=== PATIENT | male | born 1955 | race Caucasian/White ===

== ENCOUNTER 2017-08-06 17:30 | Emergency (ER) | payer BC ==
[~2017-08-06] VITALS: Ht 185.4 cm; Wt 141.4 kg
[~2017-08-06 17:30] MED LIST: BACTRIM DS1 TAB PO; CARVEDILOL3.125 MG PO; GABAPENTIN100 MG PO; INVOKANA300 MG PO; LANTUS100 UNIT/M SC; LIPITOR40 M1 PO; LISINOPRIL5 MG PO; METFORMIN500 MG PO; NOVOLOG100 IU/1 M SC; TRAMADOL HCL50 MG PO; XARELTO20 MG PO
[2017-08-06] MEDS ORDERED: ASPIRIN 81 LOW81 MG PO (17:41)
[2017-08-06 19:49] LABS: HEMATOCRIT 38.3 % (39.0-50.0); HEMOGLOBIN 12.2 g/dl (14.0-18.0); IMMATURE GRANULOCYTES 0.3 % (0.0-1.0); MEAN CELL VOLUME 83.1 fL CALC (80.0-100.0); MEAN CORPUSCULAR HGB 26.5 pG CALC (26.0-32.0); MEAN CORPUSCULAR HGB CONC 31.9 g/L CALC (32.0-36.0); NEUT# 9.47 thou/uL (1.82-7.42); RED BLOOD COUNT 4.61 mill/uL (4.70-6.10); RED CELL DISTRI WIDTH 16.2 % (11.5-15.5)
[2017-08-06 20:00] LABS: INFLUENZA A NONE DETECTED (NONE DETECT); INFLUENZA B NONE DETECTED (NONE DETECT)
[2017-08-06 20:47] LABS: ALBUMIN 3.6 g/dL (3.2-5.0); ALKALINE PHOSPHATASE 120 u/l (38-126); ANION GAP 16 (6-22 (CALC)); BILIRUBIN, TOTAL 0.9 mg/dL (0.0-1.4); BUN 12 mg/dL (8-23); BUN/CREATININE RATIO 19 (12-20 (CALC)); CALCIUM 8.9 mg/dL (8.4-10.2); CARBON DIOXIDE 24 mmol/l (22-30); CHLORIDE 101 mmol/l (95-108); CREATININE 0.6 mg/dL (0.7-1.3); GFR > 60 ML/MIN (>=60 (CALC)); GFR FOR AFR.AMER. > 60 ML/MIN (>=60 (CALC)); GLUCOSE 197 mg/dL (82-115); POTASSIUM 4.2 mmol/l (3.5-5.1); SGOT/AST 22 u/l (19-48); SGPT/ALT 34 u/l (11-66); SODIUM 137 mmol/l (137-146); TOTAL PROTEIN 6.4 g/dL (6.3-8.2)
[2017-08-06] MEDS ORDERED: TESSALON PER100 MG PO (23:18)
[2017-08-06] MEDS ORDERED: PROVENTIL HFA IN (23:18)
[2017-08-06] MEDS ORDERED: ZITHROMAX250 MG PO (23:18)
[2017-08-06 23:55] VITALS: BP 124/65
== END 2017-08-06 23:55 | disposition home or self-care (01) | DRG 203 ==
LOC: ED 17:30
PROVIDERS: Emergency Medicine
DX: J40 Bronchitis, not specified as acute or chronic (principal); E11.40 Type 2 diabetes mellitus with diabetic neuropathy, unspecified; E78.5 Hyperlipidemia, unspecified; I10 Essential (primary) hypertension; I25.10 Atherosclerotic heart disease of native coronary artery without angina pectoris; I25.2 Old myocardial infarction
CPT/HCPCS: Q9967

== ENCOUNTER 2017-12-11 21:17 | Emergency (ER) | payer BC ==
[~2017-12-11] VITALS: Ht 185.4 cm; Wt 134.0 kg
[~2017-12-11 21:17] MED LIST changes: +ASPIRIN 81 LOW81 MG PO; +PROVENTIL HFA IN; +TESSALON PER100 MG PO; +ZITHROMAX250 MG PO
[2017-12-11 22:30] LABS: URINE BILIRUBIN - DIPSTICK NEGATIVE (NEGATIVE); URINE BLOOD DIPSTICK NEGATIVE (NEGATIVE); URINE COLOR YELLOW; URINE GLUCOSE - DIPSTICK >=1000 mg/dL (NEGATIVE); URINE KETONE NEGATIVE (NEGATIVE); URINE LEUK ESTERASE NEGATIVE (NEGATIVE); URINE NITRITE - DIPSTICK NEGATIVE (Negative); URINE PROTEIN - DIPSTICK NEGATIVE (NEG-TRACE); URINE SPECIFIC GRAVITY 1.015; URINE UROBILINOGEN - DIPSTICK 0.2 E.U./dL (0.2)
[2017-12-11 22:32] LABS: URINE CLARITY CLEAR
[2017-12-12] MEDS ORDERED: FLEXERIL PO (00:30)
[2017-12-12] MEDS ORDERED: LORTAB 1010 MG PO (00:30)
[2017-12-12 00:45] VITALS: BP 155/90
== END 2017-12-12 00:45 | disposition home or self-care (01) | DRG 605 ==
LOC: ED 21:17
PROVIDERS: Emergency Medicine
DX: S20.229A Contusion of unspecified back wall of thorax, initial encounter (principal); E11.9 Type 2 diabetes mellitus without complications; I10 Essential (primary) hypertension; I25.2 Old myocardial infarction; M47.816 Spondylosis without myelopathy or radiculopathy, lumbar region; W11.XXXA Fall on and from ladder, initial encounter; Y92.512 Supermarket, store or market as the place of occurrence of the external cause; Y99.9 Unspecified external cause status

== ENCOUNTER 2018-04-25 18:20 | Emergency (ER) | payer BC ==
[~2018-04-25] VITALS: Ht 185.4 cm; Wt 137.0 kg
[~2018-04-25 18:20] MED LIST changes: +FLEXERIL PO; +LORTAB 1010 MG PO
[2018-04-25 18:51] LABS: IMMATURE GRANULOCYTES 0.7 % (0.0-5.0); MEAN CELL VOLUME 83.2 fL CALC (80.0-100.0); MEAN CORPUSCULAR HGB 26.6 pG CALC (26.0-32.0); NEUT# 9.15 thou/uL (1.82-7.42); RED BLOOD COUNT 5.53 mill/uL (4.70-6.10); RED CELL DISTRI WIDTH 15.4 % (11.5-15.5)
[2018-04-25 18:52] LABS: HEMOGLOBIN 14.7 g/dl (14.0-18.0)
[2018-04-25 18:53] LABS: URINE BILIRUBIN - DIPSTICK NEGATIVE (NEGATIVE); URINE BLOOD DIPSTICK NEGATIVE (NEGATIVE); URINE COLOR YELLOW; URINE GLUCOSE - DIPSTICK >=1000 mg/dL (NEGATIVE); URINE KETONE NEGATIVE (NEGATIVE); URINE LEUK ESTERASE NEGATIVE (NEGATIVE); URINE NITRITE - DIPSTICK NEGATIVE (Negative); URINE PROTEIN - DIPSTICK 30 mg/dL (NEG-TRACE); URINE UROBILINOGEN - DIPSTICK 0.2 E.U./dL (0.2)
[2018-04-25 18:56] LABS: COCAINE NEGATIVE (NEGATIVE); METHADONE NEGATIVE (NEGATIVE); TETRAHYDROCANNABIONOL NEGATIVE (NEGATIVE)
[2018-04-25 18:57] LABS: BARBITURATES NEGATIVE (NEGATIVE); OXCYCODONE NEGATIVE (NEGATIVE); TRICYLIC ANTIDEPRESSANTS NEGATIVE (NEGATIVE)
[2018-04-25 19:02] LABS: URINE CLARITY CLEAR
[2018-04-25 19:07] LABS: ALKALINE PHOSPHATASE 127 u/l (38-126); BILIRUBIN, TOTAL 1.2 mg/dL (0.0-1.4); BUN 31 mg/dL (8-23); BUN/CREATININE RATIO 33 (12-20 (CALC)); CARBON DIOXIDE 26 mmol/l (22-30); CHLORIDE 99 mmol/l (95-108); CREATININE 0.9 mg/dL (0.7-1.3); ETHYL ALCOHOL 0 mg/dl (0-30); GFR > 60 ML/MIN (>=60 (CALC)); GFR FOR AFR.AMER. > 60 ML/MIN (>=60 (CALC)); SGPT/ALT 54 u/l (11-66); SODIUM 139 mmol/l (137-146)
[2018-04-25 19:07] LABS: URINE RBC 0-2 RBC/hpf (0-5)
[2018-04-25 19:09] LABS: ALBUMIN 4.8 g/dL (3.2-5.0); ANION GAP 19 (6-22 (CALC)); POTASSIUM 5.3 mmol/l (3.5-5.1); SGOT/AST 49 u/l (19-48); TOTAL PROTEIN 9.7 g/dL (6.3-8.2)
[2018-04-25 20:30] VITALS: BP 132/74
[2018-04-25 20:57] LABS: MYOGLOBIN 53 ng/mL (0 - 121)
== END 2018-04-25 20:40 | disposition left against medical advice (07) | DRG 948 ==
LOC: ED 18:20
PROVIDERS: Emergency Medicine
DX: R53.1 Weakness (principal); E11.65 Type 2 diabetes mellitus with hyperglycemia; I10 Essential (primary) hypertension; I25.2 Old myocardial infarction; Z91.19 Patient's noncompliance with other medical treatment and regimen

== ENCOUNTER 2018-07-25 21:34 | Emergency (ER) | payer BC ==
[~2018-07-25] VITALS: Ht 185.4 cm; Wt 136.0 kg
[2018-07-25] MEDS ORDERED: LORTAB 1010 MG PO (23:19)
[2018-07-25] MEDS ORDERED: BACTRIM DS1 TAB PO (23:19)
[2018-07-25 23:45] VITALS: BP 152/79
== END 2018-07-25 23:42 | disposition home or self-care (01) | DRG 556 ==
LOC: ED 21:34
DX: M79.672 Pain in left foot (principal); E11.610 Type 2 diabetes mellitus with diabetic neuropathic arthropathy; I10 Essential (primary) hypertension; I25.2 Old myocardial infarction

== ENCOUNTER → 2018-10-13 | Outpatient (REF) ==
[~2018-10-13] MED LIST changes: +CLEOCIN300 MG PO
== END | disposition home or self-care (01) | DRG 639 ==
LOC: LAB 08:00
PROVIDERS: ATTEND Physician Assistant
DX: E11.65 Type 2 diabetes mellitus with hyperglycemia (principal); E78.00 Pure hypercholesterolemia, unspecified; I10 Essential (primary) hypertension; E66.01 Morbid (severe) obesity due to excess calories

== ENCOUNTER 2018-11-03 09:19 | Emergency (ER) | payer BC ==
[~2018-11-03] VITALS: Ht 185.4 cm; Wt 136.4 kg
[~2018-11-03 09:19] MED LIST changes: -CLEOCIN300 MG PO
[2018-11-03 10:37] LABS: IMMATURE GRANULOCYTES 0.4 % (0.0-5.0); MEAN CORPUSCULAR HGB CONC 30.8 g/L CALC (32.0-36.0); NEUT# 6.75 thou/uL (1.82-7.42); RED BLOOD COUNT 4.8 mill/uL (4.70-6.10); RED CELL DISTRI WIDTH 16.5 % (11.5-15.5)
[2018-11-03 11:00] LABS: ALBUMIN 3.5 g/dL (3.2-5.0); ALKALINE PHOSPHATASE 108 u/l (38-126); ANION GAP 13 (6-22 (CALC)); BILIRUBIN, TOTAL 0.9 mg/dL (0.0-1.4); BUN 31 mg/dL (8-23); BUN/CREATININE RATIO 49 (12-20 (CALC)); CARBON DIOXIDE 26 mmol/l (22-30); CHLORIDE 101 mmol/l (95-108); CREATININE 0.6 mg/dL (0.7-1.3); GFR > 60 ML/MIN (>=60 (CALC)); GFR FOR AFR.AMER. > 60 ML/MIN (>=60 (CALC)); POTASSIUM 4.6 mmol/l (3.5-5.1); SGOT/AST 27 u/l (19-48); SODIUM 136 mmol/l (137-146); TOTAL PROTEIN 6.8 g/dL (6.3-8.2)
[2018-11-03 11:06] LABS: HEMATOCRIT 38.9 % (39.0-50.0)
[2018-11-03] MEDS ORDERED: CLEOCIN300 MG PO (11:21)
[2018-11-03 12:53] VITALS: BP 166/85
== END 2018-11-03 13:13 | disposition home or self-care (01) | DRG 603 ==
LOC: ED 09:19
PROVIDERS: Emergency Medicine
DX: L03.116 Cellulitis of left lower limb (principal); R22.42 Localized swelling, mass and lump, left lower limb

== ENCOUNTER → 2018-11-03 | Outpatient (REF) | END | disposition home or self-care (01) | DRG 594 | LOC: LAB 12:58 | PROVIDERS: ATTEND Surgery | DX: L97.322 Non-pressure chronic ulcer of left ankle with fat layer exposed (principal); E11.40 Type 2 diabetes mellitus with diabetic neuropathy, unspecified ==

== ENCOUNTER 2019-07-29 10:33 | Observation (INO) | payer MEDICARE ==
[~2019-07-29] VITALS: Ht 185.4 cm; Wt 139.0 kg
[~2019-07-29 10:33] MED LIST changes: +CLEOCIN300 MG PO; +NORCO1 TA2 PO
[2019-07-29 11:25] LABS: HEMATOCRIT 34.9 % (39.0-50.0); HEMOGLOBIN 10.7 g/dl (14.0-18.0); IMMATURE GRANULOCYTES 0.5 % (0.0-5.0); MEAN CORPUSCULAR HGB 23.1 pG CALC (26.0-32.0); MEAN CORPUSCULAR HGB CONC 30.7 g/L CALC (32.0-36.0); NEUT# 12.4 thou/uL (1.82-7.42); RED BLOOD COUNT 4.64 mill/uL (4.70-6.10); RED CELL DISTRI WIDTH 18.6 % (11.5-15.5)
[2019-07-29 11:29] LABS: MEAN CELL VOLUME 75.2 fL CALC (80.0-100.0)
[2019-07-29 11:46] LABS: URINE BILIRUBIN - DIPSTICK NEGATIVE (NEGATIVE); URINE BLOOD DIPSTICK SMALL (NEGATIVE); URINE COLOR YELLOW; URINE GLUCOSE - DIPSTICK >=1000 mg/dL (NEGATIVE); URINE KETONE NEGATIVE (NEGATIVE); URINE LEUK ESTERASE NEGATIVE (NEGATIVE); URINE NITRITE - DIPSTICK NEGATIVE (Negative); URINE PH 7.5 (4.5-8.0); URINE PROTEIN - DIPSTICK 100 mg/dL (NEG-TRACE); URINE UROBILINOGEN - DIPSTICK 0.2 E.U./dL (0.2)
[2019-07-29 11:48] LABS: BARBITURATES NEGATIVE (NEGATIVE); COCAINE NEGATIVE (NEGATIVE); METHADONE NEGATIVE (NEGATIVE); OXCYCODONE NEGATIVE (NEGATIVE); TETRAHYDROCANNABIONOL NEGATIVE (NEGATIVE); TRICYLIC ANTIDEPRESSANTS NEGATIVE (NEGATIVE); URINE SQUAMOUS EPITHELIAL CELL FEW EPI/hpf (0-FEW)
[2019-07-29 11:54] LABS: MYOGLOBIN 33 ng/mL (0 - 121)
[2019-07-29 13:02] LABS: ALBUMIN 3.7 g/dL (3.2-5.0); ALKALINE PHOSPHATASE 130 u/l (38-126); ANION GAP 14 (6-22 (CALC)); BUN 16 mg/dL (8-23); BUN/CREATININE RATIO 28 (12-20 (CALC)); CARBON DIOXIDE 26 mmol/l (22-30); CHLORIDE 99 mmol/l (95-108); CREATININE 0.6 mg/dL (0.7-1.3); GFR > 60 ML/MIN (>=60 (CALC)); GFR FOR AFR.AMER. > 60 ML/MIN (>=60 (CALC)); SGOT/AST 21 u/l (19-48); SODIUM 135 mmol/l (137-146)
[2019-07-29 13:03] LABS: BILIRUBIN, TOTAL 1.3 mg/dL (0.0-1.4)
[2019-07-29 17:39] VITALS: BP 157/87
[2019-07-29 19:06] VITALS: BP 188/91
[2019-07-29 22:04] VITALS: BP 168/73
[2019-07-29 23:48] VITALS: BP 155/80
[2019-07-30 04:27] VITALS: BP 149/82
[2019-07-30 04:44] LABS: HEMATOCRIT 31.4 % (39.0-50.0); HEMOGLOBIN 9.6 g/dl (14.0-18.0); IMMATURE GRANULOCYTES 0.4 % (0.0-5.0); MEAN CELL VOLUME 75.3 fL CALC (80.0-100.0); MEAN CORPUSCULAR HGB CONC 30.6 g/L CALC (32.0-36.0); NEUT# 6.39 thou/uL (1.82-7.42); RED BLOOD COUNT 4.17 mill/uL (4.70-6.10); RED CELL DISTRI WIDTH 18.8 % (11.5-15.5)
[2019-07-30 05:03] LABS: ALKALINE PHOSPHATASE 98 u/l (38-126); ANION GAP 11 (6-22 (CALC)); BILIRUBIN, TOTAL 0.8 mg/dL (0.0-1.4); BUN 19 mg/dL (8-23); BUN/CREATININE RATIO 30 (12-20 (CALC)); CALCULATED LDLCHOLESTEROL 59 mg/dL (62-129 (CALC)); CARBON DIOXIDE 29 mmol/l (22-30); CHLORIDE 100 mmol/l (95-108); CHOLESTEROL HDL RATIO 3.7 (<4.4 (CALC)); CREATININE 0.6 mg/dL (0.7-1.3); GFR > 60 ML/MIN (>=60 (CALC)); GFR FOR AFR.AMER. > 60 ML/MIN (>=60 (CALC)); HDL CHOLESTEROL 31 mg/dL (>=40); POTASSIUM 3.9 mmol/l (3.5-5.1); SGOT/AST 17 u/l (19-48); SODIUM 136 mmol/l (137-146); TOTAL CHOLESTEROL 114 mg/dl (0-199); TOTAL PROTEIN 6.4 g/dL (6.3-8.2); TOTAL TRIGLYCERIDES 120 mg/dl (30-149); VLDL CHOLESTROL 24 mg/dl (4-45 (CALC))
[2019-07-30 05:07] LABS: ALBUMIN 2.9 g/dL (3.2-5.0)
[2019-07-30 07:40] VITALS: BP 186/101
[2019-07-30 09:31] VITALS: BP 186/101
[2019-07-30] MEDS ORDERED: LISINOP/HCTZ1 TA1 PO (10:04)
[2019-07-30] MEDS ORDERED: LOPRESSOR25 M1 PO (10:04)
[2019-07-30] MEDS ORDERED: GABAPENTIN300 M2 PO (10:05)
[2019-07-30] MEDS ORDERED: ELIQUIS5 MG PO (10:05)
[2019-07-30] MEDS ORDERED: TRESIBA FL200 UNIT/M SC (10:07)
[2019-07-30] MEDS ORDERED: DOXYCYC MONO100 M2 PO (10:08)
[2019-07-30] MEDS ORDERED: LASIX 40 MG TAB40 MG PO (10:09)
== END 2019-07-30 11:07 | disposition home or self-care (01) ==
LOC: ED 10:33 → ED-I 14:20 → ED 14:32 → MS2 14:33
PROVIDERS: Emergency Medicine; ADMIT Internal Medicine; ATTEND Internal Medicine
DX: I48.91 Unspecified atrial fibrillation (principal); I11.0 Hypertensive heart disease with heart failure; I50.9 Heart failure, unspecified; E11.621 Type 2 diabetes mellitus with foot ulcer; L97.529 Non-pressure chronic ulcer of other part of left foot with unspecified severity; E11.622 Type 2 diabetes mellitus with other skin ulcer; L97.329 Non-pressure chronic ulcer of left ankle with unspecified severity; L97.919 Non-pressure chronic ulcer of unspecified part of right lower leg with unspecified severity; E11.65 Type 2 diabetes mellitus with hyperglycemia; E11.610 Type 2 diabetes mellitus with diabetic neuropathic arthropathy; E78.5 Hyperlipidemia, unspecified; I25.10 Atherosclerotic heart disease of native coronary artery without angina pectoris; R60.0 Localized edema; I25.2 Old myocardial infarction; E66.01 Morbid (severe) obesity due to excess calories; Z79.4 Long term (current) use of insulin; Z79.01 Long term (current) use of anticoagulants; Z87.891 Personal history of nicotine dependence; Z68.37 Body mass index [BMI] 37.0-37.9, adult; L97.323 Non-pressure chronic ulcer of left ankle with necrosis of muscle; M14.672 Charcot's joint, left ankle and foot; R60.9 Edema, unspecified; L60.2 Onychogryphosis; S90.412D Abrasion, left great toe, subsequent encounter; S90.415D Abrasion, left lesser toe(s), subsequent encounter; L97.212 Non-pressure chronic ulcer of right calf with fat layer exposed
CPT/HCPCS: G0378

== ENCOUNTER 2021-01-19 14:44 | Observation (INO) | payer MEDICARE ==
[~2021-01-19] VITALS: Ht 182.9 cm; Wt 132.0 kg
[~2021-01-19 14:44] MED LIST changes: +DOXYCYC MONO100 M2 PO; +ELIQUIS5 MG PO; +GABAPENTIN300 M2 PO; +HYDROCODONE/ACE1 TAB PO; +LASIX 40 MG TAB40 MG PO; +LISINOP/HCTZ1 TA1 PO; +LOPRESSOR25 M1 PO; +LYRICA150 MG PO; +LYRICA225 MG PO; +MEDDOSEPAK PO; +NEURONTIN400 MG PO; +NEURONTIN600 MG PO; +NORCO1 TA1 PO; +TRESIBA FL200 UNIT/M SC
--- NOTE | 2021-01-19 14:50 | NUR ---
PT WHEELED TO ROOM. PT INSTRUCTED ON PLAN OF CARE. UNABLE TO MOVE PATIENT.
--- NOTE | 2021-01-19 15:26 | NUR ---
EMS HERE FOR ASSIST TO BED.
[2021-01-19 15:56] LABS: BASO% 1 % (0-3); EOS% 2 % (0-8); HEMOGLOBIN 11.4 g/dl (14.0-18.0); IMMATURE GRANULOCYTES 0.6 % (0.0-5.0); LYMPH% 22 % (15-41); MEAN CELL VOLUME 81.6 fL CALC (80.0-100.0); MEAN CORPUSCULAR HGB 25.9 pG CALC (26.0-32.0); MEAN CORPUSCULAR HGB CONC 31.7 g/dL CAL (32.0-36.0); MONO% 7 % (2-13); NEUT# 8.51 thou/uL (1.82-7.42); NEUT% 69 % (42-76); PLATELET COUNT 395 thou/uL (130-400); RED BLOOD COUNT 4.41 mill/uL (4.70-6.10); RED CELL DISTRI WIDTH 14.3 % (11.5-15.5)
[2021-01-19 16:04] LABS: ALBUMIN 3.6 g/dL (3.2-5.0); ALKALINE PHOSPHATASE 116 u/l (38-126); ANION GAP 13 (6-22 (CALC)); CARBON DIOXIDE 23 mmol/l (22-30); CHLORIDE 95 mmol/l (95-108); CPK 78 u/l (52-200); CREATININE 2.7 mg/dL (0.7-1.3); GFR 24 ML/MIN (>=60 (CALC)); GFR FOR AFR.AMER. 29 ML/MIN (>=60 (CALC)); MAGNESIUM 2.1 mg/dL (1.6-2.3); POTASSIUM 4.9 mmol/l (3.5-5.1); SGOT/AST 16 u/l (19-48); SODIUM 127 mmol/l (137-146); TOTAL PROTEIN 7.7 g/dL (6.3-8.2)
[2021-01-19 16:07] LABS: BILIRUBIN, TOTAL 0.4 mg/dL (0.0-1.4); BUN 67 mg/dL (8-23); BUN/CREATININE RATIO 25 (12-20 (CALC))
[2021-01-19 16:13] LABS: PROTHROMBIN TIME 10.1 SECONDS (9.0-12.5)
[2021-01-19 16:16] LABS: MYOGLOBIN 118 ng/mL (0 - 121)
--- NOTE | 2021-01-19 16:35 | NUR ---
PT STABLE. SITTING UPRIGHT IN BED. STABLE ON MONITOR. BED IN LOW POSITION. IV MEDS AND FLUIDS INFUSING WITHOUT DIFFICTULY. CALL LIGHT WITHIN REACH.
[2021-01-19 16:45] LABS: URINE BILIRUBIN - DIPSTICK NEGATIVE (NEGATIVE); URINE BLOOD DIPSTICK MODERATE (NEGATIVE); URINE COLOR YELLOW; URINE GLUCOSE - DIPSTICK >=1000 mg/dL (NEGATIVE); URINE KETONE NEGATIVE (NEGATIVE); URINE LEUK ESTERASE TRACE (Negative); URINE NITRITE - DIPSTICK NEGATIVE (Negative); URINE PH 5.5 (4.5-8.0); URINE PROTEIN - DIPSTICK >=300 mg/dL (NEG-TRACE); URINE SPECIFIC GRAVITY >=1.030; URINE UROBILINOGEN - DIPSTICK 0.2 E.U./dL (0.2)
[2021-01-19 16:46] LABS: URINE CLARITY HAZY
[2021-01-19 16:59] LABS: URINE CALCIUM OXALATE CRYSTALS FEW lpf; URINE RBC 0-2 RBC/hpf (0-5); URINE WBC 0-2 WBC/hpf (0-5)
--- NOTE | 2021-01-19 17:17 | NUR ---
IV FLUIDS CONTINUE TO INFUSE, NO CONCERNS VOICED AT THIS TIME. AWAITING ADMISSION.
--- NOTE | 2021-01-19 17:41 | NUR ---
REPORT GIVE TO [facility] [employer] ON [employer]. PT TO ROOM 268
--- NOTE | 2021-01-19 17:48 | NUR ---
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
[2021-01-19 18:11] VITALS: BP 166/99
[2021-01-19 19:00] VITALS: BP 155/78
--- NOTE | 2021-01-20 | NUR ---
PT RESTING IN BED, NO SIGNS OF DISTRESS NOTED, RESP EVEN AND UNLABORED. PT VOICES NO NEEDS OR COMPLAINTS AT THIS TIME. CALL LIGHT IN REACH, CONTINUE TO MONITOR.
[2021-01-20 04:00] VITALS: BP 114/63
--- NOTE | 2021-01-20 04:41 | NUR ---
PT LAYING IN BED WITH EYES CLOSED, APPEARS TO BE SLEEPING, APPEARS COMFORTABLE AND IN NO DISTRESS. RESPIRATIONS REGULAR AND UNLABORED. ITEMS REMAIN WITHIN REACH, CALL HODGE REMAINS WITHIN REACH. BED REMAINS LOCKED AND IN LOW POSITION WITH BEDRAILS UP X2. WILL CONTINUE TO MONITOR.
[2021-01-20 04:52] LABS: HEMATOCRIT 31.2 % (39.0-50.0); HEMOGLOBIN 9.9 g/dl (14.0-18.0); IMMATURE GRANULOCYTES 0.4 % (0.0-5.0); MEAN CELL VOLUME 82.3 fL CALC (80.0-100.0); MEAN CORPUSCULAR HGB 26.1 pG CALC (26.0-32.0); MEAN CORPUSCULAR HGB CONC 31.7 g/dL CAL (32.0-36.0); NEUT# 7.15 thou/uL (1.82-7.42); RED BLOOD COUNT 3.79 mill/uL (4.70-6.10); RED CELL DISTRI WIDTH 14.5 % (11.5-15.5)
[2021-01-20 05:20] LABS: CREATININE 2.8 mg/dL (0.7-1.3); POTASSIUM 5.1 mmol/l (3.5-5.1)
[2021-01-20 05:25] LABS: ALBUMIN 2.6 g/dL (3.2-5.0); BILIRUBIN, TOTAL 0.2 mg/dL (0.0-1.4); TOTAL PROTEIN 5.8 g/dL (6.3-8.2)
[2021-01-20 07:50] VITALS: BP 168/84
--- NOTE | 2021-01-20 07:50 | NUR ---
ASSESSMENT IS COMPLTED: IV SITE IS FREE FROM REDNESS OR EDEAM. HR IS REG,PULSES ON R LEG IS STRONG THE STUMP IS STRONG, HAS A TYPE OF RASH ON LEFT STUMP, SOME REDNESS NOTED. BREATH SOUNDS ARE CLEAR BILATERALLY. +3 PITTING EDEMA NOTED.
[2021-01-20 10:55] VITALS: BP 145/82
--- NOTE | 2021-01-20 15:08 | NUR ---
PT AND VISITOR HAVING A SHOUTING MATCH. CASE MANAGEMENT IN TO SPEAK WITH THEM RE: HOME HEALTH ASSISTANCE UPON DISCHARGE. PT IS WANTING HIS FAMILY TO SIGN HIM OUT AMA. SHE IS TELLING HIM "NO THE DR'S LOOK AT THIS ".
--- NOTE | 2021-01-20 16:20 | NUR ---
PT IS SITTING ON THE SIDE OF THE BED, HAS BEEN VISITING WITH FAMILY.
[2021-01-20 16:30] VITALS: BP 150/84
[2021-01-20 19:00] VITALS: BP 160/94
--- NOTE | 2021-01-20 20:12 | NUR ---
PHYSICAL ASSESMENT COMPLETE. PT CURRENTLY DENIES PAIN OR DISCOMFORT. SCHEDULED MEDICATIONS AND PRN MEDICATION ADMINISTERED, SEE E-MAR. PT DENIES ANY NEEDS AT THIS TIME. PLAN OF CARE REVIEWED, PT DENIES QUESTIONS, VERBALIZES UNDERSTANDING. ITEMS WITHIN REACH, BED LOCKED IN LOW POSITION W/ BEDRAILS UP X2. CALL HODGE WITHIN REACH, AGREES TO CALL PRN.
[2021-01-21] VITALS: BP 161/84
[2021-01-21 04:00] VITALS: BP 144/79
[2021-01-21 04:53] LABS: HEMATOCRIT 32.6 % (39.0-50.0); MEAN CELL VOLUME 83.6 fL CALC (80.0-100.0); MEAN CORPUSCULAR HGB 25.6 pG CALC (26.0-32.0); MEAN CORPUSCULAR HGB CONC 30.7 g/dL CAL (32.0-36.0); RED BLOOD COUNT 3.9 mill/uL (4.70-6.10); RED CELL DISTRI WIDTH 14.3 % (11.5-15.5)
[2021-01-21 05:04] LABS: CREATININE 2.4 mg/dL (0.7-1.3); POTASSIUM 4.5 mmol/l (3.5-5.1)
--- NOTE | 2021-01-21 07:45 | NUR ---
ASSESSMENT IS COMPLETED: IV SITE IS FREE FROM REDNESS OR EDEMA. HR IS REG,PULSES ARE STRONG X4, ABD IS SOFT WITH ACTIVE BS. BREATH SOUNDS ARE CLEAR,BILATERALLY, TELE MONITOR IN PLACE. PT IS SITTING ON THE SIDE OF THE BED.
--- NOTE | 2021-01-21 08:00 | NUR ---
PT WAS SPEAKING WITH HIS . SHE WAS UPSET DUE TO NOONE LETTING HER COME UP AND SEE THE PT. EXPLAINED ABOUT THE 1PM VISITING HOURS.
[2021-01-21] MEDS ORDERED: DOXYCYCL HYC100 MG PO (09:14)
[2021-01-21] MEDS ORDERED: AMLODIPINE BESYL5 MG PO (09:15)
[2021-01-21 09:39] VITALS: BP 144/79
--- NOTE | 2021-01-21 11:00 | NUR ---
IV SITE DISCONTINUED CATHETER INTACT. NO REDNESS OR EDEMA
--- NOTE | 2021-01-21 11:00 | NUR ---
IV SITE DISCONITNUED CATHETER INTACT. NO REDNESS OR EDEMA. TELE MONITOR TAKEN OFF . WAITING FOR DISCHARGE INSTRUCTIONS.
--- NOTE | 2021-01-21 11:30 | NUR ---
DISCHARGE INSTRUCTIONS GIVEN AND VERBALIZED UNDERSTANDING. Discharge instructions given. Patient verbalizes understanding of same. Discharged in stable condition via Wheelchair to Home with family. All belongings sent with pt.
[2021-02-10] MEDS ORDERED: LORTAB 1010 MG PO (08:31)
[2021-02-10] MEDS ORDERED: NEURONTIN600 MG PO (08:33)
[2021-03-10] MEDS ORDERED: LORTAB 1010 MG PO (08:33)
[2021-04-21] MEDS ORDERED: LORTAB 1010 MG PO (08:15)
== END 2021-01-21 11:05 | disposition home or self-care (01) ==
LOC: ED 14:44 → ED-I 15:16 → ED 15:16 → ED-I 17:10 → ED 17:14 → MS2 17:15
PROVIDERS: Nurse Practitioner Family; ADMIT Internal Medicine; ATTEND Internal Medicine
DX: N17.9 Acute kidney failure, unspecified (principal); E87.1 Hypo-osmolality and hyponatremia; E11.65 Type 2 diabetes mellitus with hyperglycemia; E86.0 Dehydration; L03.115 Cellulitis of right lower limb; I12.9 Hypertensive chronic kidney disease with stage 1 through stage 4 chronic kidney disease, or unspecified chronic kidney disease; E11.22 Type 2 diabetes mellitus with diabetic chronic kidney disease; N18.9 Chronic kidney disease, unspecified; E11.610 Type 2 diabetes mellitus with diabetic neuropathic arthropathy; E78.5 Hyperlipidemia, unspecified; I48.91 Unspecified atrial fibrillation; T50.2X5A Adverse effect of carbonic-anhydrase inhibitors, benzothiadiazides and other diuretics, initial encounter; I25.2 Old myocardial infarction; Z89.512 Acquired absence of left leg below knee; Z91.14 Patient's other noncompliance with medication regimen; Z91.11 Patient's noncompliance with dietary regimen; Z87.891 Personal history of nicotine dependence; Z79.4 Long term (current) use of insulin; Z20.822 Contact with and (suspected) exposure to COVID-19
CPT/HCPCS: G0378

== ENCOUNTER 2021-04-18 17:26 | Emergency (ER) | payer MEDICARE ==
[~2021-04-18] VITALS: Ht 182.9 cm; Wt 125.0 kg
[~2021-04-18 17:26] MED LIST changes: +AMLODIPINE BESYL5 MG PO; +DOXYCYCL HYC100 MG PO
[2021-04-18] MEDS ORDERED: DOXYCYCL HYC100 MG PO (18:05)
[2021-04-18 19:18] VITALS: BP 165/87
[2021-04-21] MEDS ORDERED: LORTAB 1010 MG PO (08:15)
[2021-06-22] MEDS ORDERED: LORTAB 1010 MG PO (14:59)
[2021-06-22] MEDS ORDERED: ZESTRIL10 M1 PO (14:59)
[2021-06-22] MEDS ORDERED: NOVOLOG100 UNIT SC (15:00)
[2021-06-22] MEDS ORDERED: TOPROL XL25 M1 PO (15:01)
[2021-06-22] MEDS ORDERED: TRESIBA100 UNIT/M (15:01)
[2021-06-22] MEDS ORDERED: ATORVASTATIN CA20 MG PO (15:01)
[2021-06-22] MEDS ORDERED: NEO SYNEPHRINE NAB (15:03)
[2021-06-30] MEDS ORDERED: LORTAB 1010 MG PO (08:06)
== END 2021-04-18 19:12 | disposition home or self-care (01) ==
LOC: ED 17:26
DX: L03.115 Cellulitis of right lower limb (principal); L02.415 Cutaneous abscess of right lower limb; I10 Essential (primary) hypertension; E11.610 Type 2 diabetes mellitus with diabetic neuropathic arthropathy; I25.2 Old myocardial infarction; B96.89 Other specified bacterial agents as the cause of diseases classified elsewhere; Z79.4 Long term (current) use of insulin; Z89.612 Acquired absence of left leg above knee

== ENCOUNTER 2021-04-21 09:36 | Emergency (ER) | payer MEDICARE ==
[2021-06-22] MEDS ORDERED: LORTAB 1010 MG PO (14:59)
[2021-06-22] MEDS ORDERED: ZESTRIL10 M1 PO (14:59)
[2021-06-22] MEDS ORDERED: NOVOLOG100 UNIT SC (15:00)
[2021-06-22] MEDS ORDERED: TRESIBA100 UNIT/M (15:01)
[2021-06-22] MEDS ORDERED: TOPROL XL25 M1 PO (15:01)
[2021-06-22] MEDS ORDERED: ATORVASTATIN CA20 MG PO (15:01)
[2021-06-22] MEDS ORDERED: NEO SYNEPHRINE NAB (15:03)
[2021-06-30] MEDS ORDERED: LORTAB 1010 MG PO (08:06)
== END 2021-04-21 10:04 | disposition left against medical advice (07) ==
LOC: ED 09:36 → LWOBS 10:04 → ED 10:14
DX: Z53.21 Procedure and treatment not carried out due to patient leaving prior to being seen by health care provider (principal)

== ENCOUNTER 2021-04-29 11:37 | Emergency (ER) | payer MEDICARE ==
[~2021-04-29] VITALS: Ht 182.9 cm; Wt 150.0 kg
[2021-04-29 13:08] LABS: HEMATOCRIT 31.8 % (39.0-50.0); HEMOGLOBIN 9.9 g/dl (14.0-18.0); IMMATURE GRANULOCYTES 1.1 % (0.0-5.0); MEAN CELL VOLUME 84.4 fL CALC (80.0-100.0); MEAN CORPUSCULAR HGB 26.3 pG CALC (26.0-32.0); MEAN CORPUSCULAR HGB CONC 31.1 g/dL CAL (32.0-36.0); NEUT# 7.15 thou/uL (1.82-7.42); RED BLOOD COUNT 3.77 mill/uL (4.70-6.10); RED CELL DISTRI WIDTH 15.6 % (11.5-15.5)
[2021-04-29 13:21] LABS: BILIRUBIN, TOTAL 0.8 mg/dL (0.0-1.4); CREATININE 1.9 mg/dL (0.7-1.3); POTASSIUM 4.8 mmol/l (3.5-5.1)
[2021-04-29 13:25] VITALS: BP 160/84
== END 2021-04-29 13:25 | disposition left against medical advice (07) ==
LOC: ED 11:37
PROVIDERS: Family Medicine
DX: E11.65 Type 2 diabetes mellitus with hyperglycemia (principal); I10 Essential (primary) hypertension; E11.610 Type 2 diabetes mellitus with diabetic neuropathic arthropathy; I25.2 Old myocardial infarction; Z79.4 Long term (current) use of insulin; Z91.19 Patient's noncompliance with other medical treatment and regimen

== ENCOUNTER 2021-05-05 06:08 | Observation (INO) | payer MEDICARE ==
[~2021-05-05] VITALS: Ht 188 cm; Wt 136.0 kg
[2021-05-05 06:14] VITALS: BP 152/98
--- NOTE | 2021-05-05 06:14 | NUR ---
BY WC TO ROOM
[2021-05-05] MEDS ORDERED: AMOXICILLIN500 M2 PO (06:37)
--- NOTE | 2021-05-05 07:00 | NUR ---
STATES HE HAS AN INFECTION IN RIGHT HEEL THAT HE STARTED ABX YESTERDAY.
[2021-05-05] MEDS ORDERED: LASIX 40 MG TAB40 MG PO (07:13)
[2021-05-05] MEDS ORDERED: K-DUR/KLOR-CON20 MEQ PO (07:13)
[2021-05-05] MEDS ORDERED: LISINOP/HCTZ1 TA1 PO (07:13)
[2021-05-05] MEDS ORDERED: PREDNISONE5 MG PO (07:14)
--- NOTE | 2021-05-05 08:15 | NUR ---
PT RESTING IN WHEELCHAIR, AOX3 AND NO COMPLAINTS
[2021-05-05 08:47] LABS: HEMATOCRIT 31.4 % (39.0-50.0); HEMOGLOBIN 9.6 g/dl (14.0-18.0); MEAN CELL VOLUME 85.3 fL CALC (80.0-100.0); MEAN CORPUSCULAR HGB 26.1 pG CALC (26.0-32.0); MEAN CORPUSCULAR HGB CONC 30.6 g/dL CAL (32.0-36.0); NEUT# 9.08 thou/uL (1.82-7.42); RED BLOOD COUNT 3.68 mill/uL (4.70-6.10); RED CELL DISTRI WIDTH 15.4 % (11.5-15.5)
[2021-05-05 08:55] LABS: ALBUMIN 3.4 g/dL (3.2-5.0); BILIRUBIN, TOTAL 0.7 mg/dL (0.0-1.4); CREATININE 2.5 mg/dL (0.7-1.3); MAGNESIUM 2.2 mg/dL (1.6-2.3); POTASSIUM 4.3 mmol/l (3.5-5.1); TOTAL PROTEIN 7.1 g/dL (6.3-8.2)
[2021-05-05 08:57] LABS: ACT PARTIAL THROMBO TIME 24.3 SECONDS (20.0-32.5); INTERNATIONAL NORMALIZED RATIO 0.9 RATIO (0.7-1.3); PROTHROMBIN TIME 9.6 SECONDS (9.0-12.5)
--- NOTE | 2021-05-05 09:28 | NUR ---
PT EATING IN WHEELCHAIR, CM IN TO SEE
--- NOTE | 2021-05-05 10:32 | NUR ---
PT REFUSED IV AND MEDS, WANTS TO BE ADMITTED STRAIGHT TO PRISON. PT IS SIGNING OUT AMA AFTER TALKING WITH MIKE AND , WELL THIS RN. PT EDUCATED ON PROCESSES ETC. ON CASE MADE AWARE OF ADMISSION AMA
== END 2021-05-05 10:30 | disposition left against medical advice (07) ==
LOC: ED 06:08 → ED-I 09:30 → ED 09:46 → MS2 09:47
PROVIDERS: ADMIT Internal Medicine; ATTEND Internal Medicine
DX: E87.1 Hypo-osmolality and hyponatremia (principal); E86.0 Dehydration; E11.65 Type 2 diabetes mellitus with hyperglycemia; L03.115 Cellulitis of right lower limb; I10 Essential (primary) hypertension; I48.91 Unspecified atrial fibrillation; I25.2 Old myocardial infarction; Z60.2 Problems related to living alone; Z79.4 Long term (current) use of insulin; Z89.612 Acquired absence of left leg above knee; Z20.822 Contact with and (suspected) exposure to COVID-19

== ENCOUNTER 2021-05-10 10:53 | Emergency (ER) | payer MEDICARE ==
[~2021-05-10] VITALS: Ht 188 cm; Wt 146.0 kg
[~2021-05-10 10:53] MED LIST changes: +AMOXICILLIN500 M2 PO; +K-DUR/KLOR-CON20 MEQ PO; +PREDNISONE5 MG PO
[2021-05-10 12:03] LABS: HEMATOCRIT 29.6 % (39.0-50.0); HEMOGLOBIN 9.4 g/dl (14.0-18.0); IMMATURE GRANULOCYTES 2.3 % (0.0-5.0); MEAN CELL VOLUME 84.1 fL CALC (80.0-100.0); MEAN CORPUSCULAR HGB 26.7 pG CALC (26.0-32.0); MEAN CORPUSCULAR HGB CONC 31.8 g/dL CAL (32.0-36.0); NEUT# 9.55 thou/uL (1.82-7.42); RED BLOOD COUNT 3.52 mill/uL (4.70-6.10); RED CELL DISTRI WIDTH 15.7 % (11.5-15.5)
[2021-05-10 12:16] LABS: ALBUMIN 3.3 g/dL (3.2-5.0); BILIRUBIN, TOTAL 0.9 mg/dL (0.0-1.4); CREATININE 2.1 mg/dL (0.7-1.3); POTASSIUM 4.6 mmol/l (3.5-5.1); TOTAL PROTEIN 7.3 g/dL (6.3-8.2)
[2021-05-10 14:30] VITALS: BP 135/68
== END 2021-05-10 14:45 | disposition short-term general hospital (02) ==
LOC: ED 10:53
PROVIDERS: Family Medicine
DX: E11.621 Type 2 diabetes mellitus with foot ulcer (principal); L97.419 Non-pressure chronic ulcer of right heel and midfoot with unspecified severity; L03.115 Cellulitis of right lower limb; I48.91 Unspecified atrial fibrillation; I10 Essential (primary) hypertension; E11.610 Type 2 diabetes mellitus with diabetic neuropathic arthropathy; T45.516A Underdosing of anticoagulants, initial encounter; I25.2 Old myocardial infarction; Z89.512 Acquired absence of left leg below knee; Z91.120 Patient's intentional underdosing of medication regimen due to financial hardship; Z79.4 Long term (current) use of insulin
CPT/HCPCS: J1650

== ENCOUNTER 2021-06-07 19:22 | Emergency (ER) | payer MEDICARE ==
[~2021-06-07] VITALS: Ht 188 cm; Wt 140.0 kg
[2021-06-07] MEDS ORDERED: AMOX/K CLAV875 M1 PO (19:54)
[2021-06-07 20:10] VITALS: BP 172/80
== END 2021-06-07 20:10 | disposition home or self-care (01) ==
LOC: ED 19:22
DX: E11.621 Type 2 diabetes mellitus with foot ulcer (principal); L97.419 Non-pressure chronic ulcer of right heel and midfoot with unspecified severity; I87.2 Venous insufficiency (chronic) (peripheral); E11.610 Type 2 diabetes mellitus with diabetic neuropathic arthropathy; I10 Essential (primary) hypertension; I48.91 Unspecified atrial fibrillation; I25.2 Old myocardial infarction; Z89.612 Acquired absence of left leg above knee

== ENCOUNTER 2021-06-10 17:49 | Emergency (ER) | payer MEDICARE ==
[~2021-06-10] VITALS: Ht 188 cm; Wt 148.0 kg
[~2021-06-10 17:49] MED LIST changes: +AMOX/K CLAV875 M1 PO
[2021-06-10 18:30] LABS: HEMATOCRIT 25.8 % (39.0-50.0); IMMATURE GRANULOCYTES 0.2 % (0.0-5.0); MEAN CELL VOLUME 83.5 fL CALC (80.0-100.0); MEAN CORPUSCULAR HGB 25.9 pG CALC (26.0-32.0); NEUT# 7.59 thou/uL (1.82-7.42); RED BLOOD COUNT 3.09 mill/uL (4.70-6.10); RED CELL DISTRI WIDTH 16.7 % (11.5-15.5)
[2021-06-10 18:45] LABS: ALBUMIN 3.6 g/dL (3.2-5.0); BILIRUBIN, TOTAL 0.8 mg/dL (0.0-1.4); POTASSIUM 4.2 mmol/l (3.5-5.1); TOTAL PROTEIN 7.4 g/dL (6.3-8.2)
[2021-06-10 18:51] LABS: CREATININE 7.1 mg/dL (0.7-1.3)
[2021-06-10 21:00] VITALS: BP 145/93
== END 2021-06-10 22:30 | disposition left against medical advice (07) ==
LOC: ED 17:49
PROVIDERS: Family Medicine
DX: I12.0 Hypertensive chronic kidney disease with stage 5 chronic kidney disease or end stage renal disease (principal); E11.22 Type 2 diabetes mellitus with diabetic chronic kidney disease; N17.9 Acute kidney failure, unspecified; N18.6 End stage renal disease; I48.91 Unspecified atrial fibrillation; E11.610 Type 2 diabetes mellitus with diabetic neuropathic arthropathy; I25.2 Old myocardial infarction; Z91.19 Patient's noncompliance with other medical treatment and regimen; Z89.612 Acquired absence of left leg above knee; Z99.2 Dependence on renal dialysis

== ENCOUNTER 2021-06-17 18:09 | Emergency (ER) | payer MEDICARE ==
[~2021-06-17] VITALS: Ht 188 cm; Wt 166.8 kg
[2021-06-17 20:15] VITALS: BP 162/74
[2021-06-18] MEDS ORDERED: NAPROXEN500 MG PO (07:16)
[2021-06-22] MEDS ORDERED: LORTAB 1010 MG PO (14:59)
[2021-06-22] MEDS ORDERED: ZESTRIL10 M1 PO (14:59)
[2021-06-22] MEDS ORDERED: NOVOLOG100 UNIT SC (15:00)
[2021-06-22] MEDS ORDERED: ATORVASTATIN CA20 MG PO (15:01)
[2021-06-22] MEDS ORDERED: TRESIBA100 UNIT/M (15:01)
[2021-06-22] MEDS ORDERED: TOPROL XL25 M1 PO (15:01)
[2021-06-22] MEDS ORDERED: NEO SYNEPHRINE NAB (15:03)
== END 2021-06-17 21:06 | disposition left against medical advice (07) ==
LOC: ED 18:09
DX: T82.49XA Other complication of vascular dialysis catheter, initial encounter (principal); E11.22 Type 2 diabetes mellitus with diabetic chronic kidney disease; I12.0 Hypertensive chronic kidney disease with stage 5 chronic kidney disease or end stage renal disease; N18.6 End stage renal disease; E11.610 Type 2 diabetes mellitus with diabetic neuropathic arthropathy; I25.2 Old myocardial infarction; I48.91 Unspecified atrial fibrillation; Y83.8 Other surgical procedures as the cause of abnormal reaction of the patient, or of later complication, without mention of misadventure at the time of the procedure; Z99.2 Dependence on renal dialysis; Z91.19 Patient's noncompliance with other medical treatment and regimen

== ENCOUNTER 2021-06-18 06:36 | Emergency (ER) | payer MEDICARE ==
[~2021-06-18] VITALS: Ht 188 cm; Wt 166.0 kg
[2021-06-18] MEDS ORDERED: NAPROXEN500 MG PO (07:16)
[2021-06-18 07:30] VITALS: BP 174/97
[2021-06-22] MEDS ORDERED: LORTAB 1010 MG PO (14:59)
[2021-06-22] MEDS ORDERED: ZESTRIL10 M1 PO (14:59)
[2021-06-22] MEDS ORDERED: NOVOLOG100 UNIT SC (15:00)
[2021-06-22] MEDS ORDERED: ATORVASTATIN CA20 MG PO (15:01)
[2021-06-22] MEDS ORDERED: TRESIBA100 UNIT/M (15:01)
[2021-06-22] MEDS ORDERED: TOPROL XL25 M1 PO (15:01)
[2021-06-22] MEDS ORDERED: NEO SYNEPHRINE NAB (15:03)
== END 2021-06-18 07:30 | disposition home or self-care (01) ==
LOC: ED 06:36
DX: S80.12XA Contusion of left lower leg, initial encounter (principal); I10 Essential (primary) hypertension; E11.610 Type 2 diabetes mellitus with diabetic neuropathic arthropathy; I48.91 Unspecified atrial fibrillation; I25.2 Old myocardial infarction; W07.XXXA Fall from chair, initial encounter; Y92.009 Unspecified place in unspecified non-institutional (private) residence as the place of occurrence of the external cause; Z89.512 Acquired absence of left leg below knee

== ENCOUNTER 2021-08-10 12:51 | Emergency (ER) | payer MEDICARE ==
[~2021-08-10] VITALS: Ht 185.4 cm; Wt 136.0 kg
[~2021-08-10 12:51] MED LIST changes: +ATORVASTATIN CA20 MG PO; +NAPROXEN500 MG PO; +NEO SYNEPHRINE NAB; +NOVOLOG100 UNIT SC; +TOPROL XL25 M1 PO; +TRESIBA100 UNIT/M; +ZESTRIL10 M1 PO
[2021-08-10 15:31] VITALS: BP 168/75
== END 2021-08-10 15:30 | disposition left against medical advice (07) ==
LOC: ED 12:51
DX: Z91.19 Patient's noncompliance with other medical treatment and regimen (principal)

== ENCOUNTER 2021-09-01 09:04 | Observation (INO) | payer MEDICARE ==
[~2021-09-01] VITALS: Ht 185.4 cm; Wt 125.0 kg
--- NOTE | 2021-09-01 09:04 | NUR ---
PATIENT TO ROOM 6 VIA EMS. BEDSIDE TRIAGE COMPLETED.
[2021-09-01 09:54] LABS: HEMATOCRIT 29.6 % (39.0-50.0); HEMOGLOBIN 8.8 g/dl (14.0-18.0); IMMATURE GRANULOCYTES 0.3 % (0.0-5.0); MEAN CORPUSCULAR HGB 26.5 pG CALC (26.0-32.0); MEAN CORPUSCULAR HGB CONC 29.7 g/dL CAL (32.0-36.0); NEUT# 6.96 thou/uL (1.82-7.42); RED BLOOD COUNT 3.32 mill/uL (4.70-6.10); RED CELL DISTRI WIDTH 16.9 % (11.5-15.5)
[2021-09-01 09:55] LABS: MEAN CELL VOLUME 89.2 fL CALC (80.0-100.0)
[2021-09-01] MEDS ORDERED: METOPROL TAR100 MG PO (10:10)
[2021-09-01] MEDS ORDERED: HYDROCODONE BIT1 TA7 PO (10:10)
[2021-09-01] MEDS ORDERED: HYDRALAZINE HYD25 MG PO (10:12)
[2021-09-01] MEDS ORDERED: ASPIRIN 81 LOW81 MG PO (10:12)
[2021-09-01 10:13] LABS: ALBUMIN 3.1 g/dL (3.2-5.0); ANION GAP 13 (6-22 (CALC)); BILIRUBIN, TOTAL 0.7 mg/dL (0.0-1.4); CARBON DIOXIDE 22 mmol/l (22-30); CHLORIDE 105 mmol/l (95-108); ETHYL ALCOHOL 0 mg/dl (0-30); SGOT/AST 19 u/l (19-48); SODIUM 135 mmol/l (137-146); TOTAL PROTEIN 7.3 g/dL (6.3-8.2)
[2021-09-01 10:14] LABS: BUN 28 mg/dL (8-23); BUN/CREATININE RATIO 10 (12-20 (CALC)); CREATININE 2.7 mg/dL (0.7-1.3); GFR 24 ML/MIN (>=60 (CALC)); GFR FOR AFR.AMER. 29 ML/MIN (>=60 (CALC))
[2021-09-01] MEDS ORDERED: LISINOP/HCTZ1 TA1 PO (10:14)
[2021-09-01] MEDS ORDERED: BUMETANIDE1 MG PO (10:14)
[2021-09-01] MEDS ORDERED: TRESIBA FL200 UNIT/M SC (10:14)
[2021-09-01 10:15] LABS: ALKALINE PHOSPHATASE 146 u/l (38-126)
[2021-09-01] MEDS ORDERED: MILLIPRED5 M1 PO (10:15)
[2021-09-01] MEDS ORDERED: LASIX 40 MG TAB40 MG PO (10:16)
[2021-09-01] MEDS ORDERED: LIPITOR80 M1 PO (10:17)
[2021-09-01] MEDS ORDERED: NORVASC5 M1 PO (10:18)
[2021-09-01] MEDS ORDERED: K-TAB20 MEQ PO (10:19)
[2021-09-01 10:22] LABS: MYOGLOBIN 82 ng/mL (0 - 121)
--- NOTE | 2021-09-01 11:00 | NUR ---
SITTER AT BEDSIDE.
--- NOTE | 2021-09-01 11:16 | NUR ---
PT RESTING AT THIS TIME WITH SITTER AT BEDSIDE
--- NOTE | 2021-09-01 11:56 | NUR ---
REQUESTED URINE SPECIMEN X2 FROM PATIENT.
[2021-09-01 13:24] LABS: URINE BILIRUBIN - DIPSTICK NEGATIVE (NEGATIVE); URINE BLOOD DIPSTICK TRACE-INTACT (NEGATIVE); URINE COLOR YELLOW; URINE GLUCOSE - DIPSTICK >=1000 mg/dL (NEGATIVE); URINE KETONE NEGATIVE (NEGATIVE); URINE LEUK ESTERASE NEGATIVE (NEGATIVE); URINE PROTEIN - DIPSTICK 100 mg/dL (NEG-TRACE); URINE UROBILINOGEN - DIPSTICK 0.2 E.U./dL (0.2)
[2021-09-01 13:29] LABS: URINE NITRITE - DIPSTICK NEGATIVE (Negative)
[2021-09-01 13:36] LABS: URINE RBC 0-2 RBC/hpf (0-5)
--- NOTE | 2021-09-01 15:35 | NUR ---
REPORT GIVEN TO KENDRA IN ICU
[2021-09-01 16:49] VITALS: BP 155/78
--- NOTE | 2021-09-01 19:30 | NUR ---
RESTING IN BED ON CELL PHONE. SITTER AT BEDSIDE.
[2021-09-01 20:23] VITALS: BP 147/70
--- NOTE | 2021-09-01 20:30 | NUR ---
RESTING IN BED. VSS. RESP NON-LABORED. LUNGS CLEAR. SALINE LOCK INTACT IN RFA, SITE BENIGN. LEFT ARM SLT EDEMATOUS. PATIENT C/O PAIN TO LEFT ARM. LEFT ARM ELEVATED AND WARM COMPRESS IN PLACE. BILATERAL AMPUTEE OF LOWER EXTREMITIES. PATIENT STATES LEFT LEG AMPUTATIN WAS DONE IN OCTOBER OF 2019 AND RIGHT LEG IN JULY 2021. LEFT STUMP SKIN INTACT, PINK, WARM AND DRY. RIGHT STUMP WITH SOME SUTURES IN PLACE. PATIENT STATES STUMP HAD BEEN DRAINING AND SURGEON REMOVED SOME OF THE SUTURES. DSG TO STUMP LOOSE, REDRESSED WITH 4X4'S WRAPPED IN KERLIX AND DINORAH WRAP, SECURED WITH STOCKINETTE. GUEST SERVICES LEAD SHOWS AFIB. DISCUSSED PLAN OF CARE INCLUDING THOMASON ACT. SITTER IN CONSTANT ATTENDANCE. PATIENT DENIES SUICIDAL IDEATIONS. DENIES NEEDS AT THIS TIME. CALL HODGE IN REACH.
[2021-09-01 21:00] VITALS: BP 163/83
--- NOTE | 2021-09-01 21:06 | NUR ---
PATIENT REFUSED ELIQUIS, STATED "I DON'T WANT TO TAKE IT." EXPLAINED IMPORTANCE OF BEING ON BLOOD THINNER WITH AFIB AND RISK OF STROKE. PATIENT STILL REFUSED MEDICATION AFTER EXPLAINING RATIONALE OF TAKING BLOOD THINNER.
--- NOTE | 2021-09-01 22:00 | NUR ---
ASSISTED PATIENT TO SIT AT SIDE OF BED PER HIS REQUEST.
[2021-09-01 23:00] VITALS: BP 149/79
--- NOTE | 2021-09-01 23:00 | NUR ---
PATIENT FALLING ASLEEP WHILE SITTING AT SIDE OF BED. ASSISTED PATIENT TO LIE BACK DOWN IN BED D/T RISK OF FALLING. PATIENT VERBALIZES UNDERSTANDING.
[2021-09-02] VITALS (9 sets, daily range): BP systolic 141–186; BP diastolic 79–102
--- NOTE | 2021-09-02 | NUR ---
PATIENT VERBALIZED THAT HE WANTED TO GO HOME NOW. MAGDALENO/RN SPOKE WITH PATIENT AND EXPLAINED THOMASON ACT. PATIENT VERBALIZED SOME FRUSTRATIONS OF THINGS HE IS GOING THROUGH. SUPPORT AND REASSURANCE PROVIDED. PATIENT RELAXED AND STATES HE IS READY TO GO TO SLEEP.
--- NOTE | 2021-09-02 02:00 | NUR ---
SLEEPING. RESP NON-LABORED. REMAINS IN AFIB ON MONITOR.
--- NOTE | 2021-09-02 04:15 | NUR ---
BATHED BY SUPERVISOR AIRPLANE FLIGHT ATTENDANT. LINENS CHANGED AND REPOSITIONED IN BED.
[2021-09-02 05:46] LABS: HEMATOCRIT 29.5 % (39.0-50.0); HEMOGLOBIN 8.5 g/dl (14.0-18.0); MEAN CELL VOLUME 91.3 fL CALC (80.0-100.0); MEAN CORPUSCULAR HGB 26.3 pG CALC (26.0-32.0); MEAN CORPUSCULAR HGB CONC 28.8 g/dL CAL (32.0-36.0); RED BLOOD COUNT 3.23 mill/uL (4.70-6.10); RED CELL DISTRI WIDTH 16.8 % (11.5-15.5)
--- NOTE | 2021-09-02 05:53 | NUR ---
SITTER REMAINS AT BEDSIDE. PATIENT AND HAS BEEN CALM AND COOPERATIVE. REMAINS IN AFIB.
[2021-09-02 06:09] LABS: CREATININE 2.6 mg/dL (0.7-1.3); MAGNESIUM 1.8 mg/dL (1.6-2.3)
[2021-09-02 06:10] LABS: POTASSIUM 5.2 mmol/l (3.5-5.1)
--- NOTE | 2021-09-02 07:11 | NUR ---
PT REPORT RECEIVED FROM CARPENTER ROUGH. PT RESTING QUIETLY ON BED WITH SITTER AT BEDSIDE. NO COMPLAINTS AT THIS TIME. VITAL SIGNS STABLE.
--- NOTE | 2021-09-02 10:30 | NUR ---
PT VERY UPBEAT WHEN TALKING TO DOCTOR VIC, STATES HE WAS JUST UPSET YESTERDAY BUT DOES NOT HAVE ANY INTENTIONS OF TRYING TO HARM HIMSELF. SITTER REMAINS OUTSIDE OF ROOM, PT TALKING ON PHONE TO FRIENDS, LAUGHING AND JOKING. WAITING FOR REPORT TO COME BACK FROM PSYCH DOCTOR FOR POSSIBLE DISCHARGE
--- NOTE | 2021-09-02 12:37 | NUR ---
DR. DEL RIO AT BEDSIDE SPEAKING TO PT. AND TO PTS FAMILY MEMBER ON PHONE ABOUT PTS POSSIBLE DISCHARGE. STATES HE WILL DISCHARGE HIM HOME LATER TODAY. PTS OWN MOTORIZED WHEELCHAIR BROUGHT TO HIM PER [facility].
--- NOTE | 2021-09-02 14:05 | NUR ---
PT DISCHARGED WITH INST. AFTER CALLING FOR [facility]. PT TAKEN PER MACHINING TECHNICIAN TO ER EXIT DOOR AND PLACED OUTSIDE.
== END 2021-09-02 14:00 | disposition home or self-care (01) ==
LOC: ED 09:04 → ED-I 12:39 → ED 14:52 → ICU 14:53
PROVIDERS: Emergency Medicine; ADMIT Hospitalist; ATTEND Hospitalist
DX: I48.20 Chronic atrial fibrillation, unspecified (principal); E11.65 Type 2 diabetes mellitus with hyperglycemia; I13.0 Hypertensive heart and chronic kidney disease with heart failure and stage 1 through stage 4 chronic kidney disease, or unspecified chronic kidney disease; I50.9 Heart failure, unspecified; F43.21 Adjustment disorder with depressed mood; E11.22 Type 2 diabetes mellitus with diabetic chronic kidney disease; N18.4 Chronic kidney disease, stage 4 (severe); E11.40 Type 2 diabetes mellitus with diabetic neuropathy, unspecified; R45.851 Suicidal ideations; T87.43 Infection of amputation stump, right lower extremity; E78.5 Hyperlipidemia, unspecified; Y83.5 Amputation of limb(s) as the cause of abnormal reaction of the patient, or of later complication, without mention of misadventure at the time of the procedure; T50.916A Underdosing of multiple unspecified drugs, medicaments and biological substances, initial encounter; Z91.128 Patient's intentional underdosing of medication regimen for other reason; Z79.4 Long term (current) use of insulin; Z89.511 Acquired absence of right leg below knee; Z89.512 Acquired absence of left leg below knee; Z79.01 Long term (current) use of anticoagulants; Z87.891 Personal history of nicotine dependence; Z99.3 Dependence on wheelchair; Z20.822 Contact with and (suspected) exposure to COVID-19

== ENCOUNTER 2021-11-03 13:24 | Emergency (ER) | payer MEDICARE ==
[~2021-11-03 13:24] MED LIST changes: +BUMETANIDE1 MG PO; +HYDRALAZINE HYD25 MG PO; +HYDROCODONE BIT1 TA7 PO; +K-TAB20 MEQ PO; +LIPITOR80 M1 PO; +METOPROL TAR100 MG PO; +MILLIPRED5 M1 PO; +NORVASC5 M1 PO
[2021-11-03 14:07] VITALS: BP 159/72
[2021-11-03 15:21] VITALS: BP 159/72
[2021-11-03] MEDS ORDERED: KEFLEX500 MG PO (22:23)
[2021-11-03] MEDS ORDERED: BACTRIM DS1 TAB PO (22:23)
== END 2021-11-03 15:21 | disposition home or self-care (01) ==
LOC: ED 13:24
DX: M79.81 Nontraumatic hematoma of soft tissue (principal); I11.0 Hypertensive heart disease with heart failure; I50.9 Heart failure, unspecified; E11.40 Type 2 diabetes mellitus with diabetic neuropathy, unspecified; E78.5 Hyperlipidemia, unspecified; I48.91 Unspecified atrial fibrillation; Z89.512 Acquired absence of left leg below knee; Z89.511 Acquired absence of right leg below knee; Z79.4 Long term (current) use of insulin; R45.851 Suicidal ideations; T87.43 Infection of amputation stump, right lower extremity; N39.0 Urinary tract infection, site not specified; I13.0 Hypertensive heart and chronic kidney disease with heart failure and stage 1 through stage 4 chronic kidney disease, or unspecified chronic kidney disease; F32.A Depression, unspecified; E11.22 Type 2 diabetes mellitus with diabetic chronic kidney disease; N18.9 Chronic kidney disease, unspecified; B96.1 Klebsiella pneumoniae [K. pneumoniae] as the cause of diseases classified elsewhere; Y83.5 Amputation of limb(s) as the cause of abnormal reaction of the patient, or of later complication, without mention of misadventure at the time of the procedure; Z20.822 Contact with and (suspected) exposure to COVID-19

== ENCOUNTER 2021-11-03 19:21 | Emergency (ER) | payer MEDICARE ==
[2021-11-03] VITALS (8 sets, daily range): BP systolic 96–177; BP diastolic 74–98
[2021-11-03 20:10] LABS: HEMATOCRIT 31.1 % (39.0-50.0); HEMOGLOBIN 9.7 g/dl (14.0-18.0); IMMATURE GRANULOCYTES 0.3 % (0.0-5.0); MEAN CORPUSCULAR HGB 25.7 pG CALC (26.0-32.0); MEAN CORPUSCULAR HGB CONC 31.2 g/dL CAL (32.0-36.0); NEUT# 5.21 thou/uL (1.82-7.42); RED BLOOD COUNT 3.77 mill/uL (4.70-6.10); RED CELL DISTRI WIDTH 16.6 % (11.5-15.5)
[2021-11-03 20:13] LABS: MEAN CELL VOLUME 82.5 fL CALC (80.0-100.0)
[2021-11-03 20:30] LABS: ALBUMIN 3.1 g/dL (3.2-5.0); ALKALINE PHOSPHATASE 118 u/l (38-126); BILIRUBIN, TOTAL 0.7 mg/dL (0.0-1.4); BUN 36 mg/dL (8-23); BUN/CREATININE RATIO 12 (12-20 (CALC)); CHLORIDE 106 mmol/l (95-108); CREATININE 2.9 mg/dL (0.7-1.3); ETHYL ALCOHOL 0 mg/dl (0-30); GFR 22 ML/MIN (>=60 (CALC)); GFR FOR AFR.AMER. 26 ML/MIN (>=60 (CALC)); LIPASE 21 u/l (23-300); POTASSIUM 4.7 mmol/l (3.5-5.1); SGOT/AST 14 u/l (19-48); SODIUM 134 mmol/l (137-146); TOTAL PROTEIN 6.8 g/dL (6.3-8.2)
[2021-11-03 20:31] LABS: ANION GAP 16 (6-22 (CALC)); CARBON DIOXIDE 17 mmol/l (22-30)
[2021-11-03 21:24] LABS: URINE BILIRUBIN - DIPSTICK NEGATIVE (NEGATIVE); URINE BLOOD DIPSTICK SMALL (NEGATIVE); URINE COLOR YELLOW; URINE GLUCOSE - DIPSTICK >=1000 mg/dL (NEGATIVE); URINE KETONE NEGATIVE (NEGATIVE); URINE LEUK ESTERASE NEGATIVE (NEGATIVE); URINE PROTEIN - DIPSTICK >=300 mg/dL (NEG-TRACE); URINE SPECIFIC GRAVITY 1.025; URINE UROBILINOGEN - DIPSTICK 0.2 E.U./dL (0.2)
[2021-11-03 21:28] LABS: URINE NITRITE - DIPSTICK NEGATIVE (Negative)
[2021-11-03 21:34] LABS: URINE RBC 0-2 RBC/hpf (0-5); URINE SQUAMOUS EPITHELIAL CELL FEW EPI/hpf (0-FEW)
[2021-11-03] MEDS ORDERED: KEFLEX500 MG PO (22:23)
[2021-11-03] MEDS ORDERED: BACTRIM DS1 TAB PO (22:23)
[2021-11-04 00:02] VITALS: BP 161/75
== END 2021-11-04 00:04 ==
LOC: ED 19:21
DX: R45.851 Suicidal ideations (principal); F32.A Depression, unspecified; T87.43 Infection of amputation stump, right lower extremity; N39.0 Urinary tract infection, site not specified; I13.0 Hypertensive heart and chronic kidney disease with heart failure and stage 1 through stage 4 chronic kidney disease, or unspecified chronic kidney disease; I50.9 Heart failure, unspecified; E11.22 Type 2 diabetes mellitus with diabetic chronic kidney disease; N18.9 Chronic kidney disease, unspecified; E11.40 Type 2 diabetes mellitus with diabetic neuropathy, unspecified; I48.91 Unspecified atrial fibrillation; E78.5 Hyperlipidemia, unspecified; B96.1 Klebsiella pneumoniae [K. pneumoniae] as the cause of diseases classified elsewhere; Y83.5 Amputation of limb(s) as the cause of abnormal reaction of the patient, or of later complication, without mention of misadventure at the time of the procedure; Z89.512 Acquired absence of left leg below knee; Z89.511 Acquired absence of right leg below knee; Z20.822 Contact with and (suspected) exposure to COVID-19